=== PATIENT | male | born 1970 | race Hispanic/Latino ===

== ENCOUNTER 2018-06-29 08:09 | Day surgery (SDC) | payer BC ==
[2018-06-29] MEDS ORDERED: Propofol 10 mg/ml Inj (20 ML) ONE (09:00)
[2018-06-29 09:54] VITALS: TEMP 98
[2018-06-29] MEDS ORDERED: Lactated Ringer's 1,000 ML IV SCH (10:00)
[2018-06-29 10:46] VITALS: RESP 16; O2SAT 100
[2018-06-29 11:08] VITALS: BP 96/61; PULSE 55
== END 2018-06-29 11:14 | disposition home or self-care (01) ==
LOC: ENDO 08:09
PROVIDERS: ATTEND Internal Medicine Gastroenterology
DX: K22.10 Ulcer of esophagus without bleeding (principal); R10.13 Epigastric pain; K29.50 Unspecified chronic gastritis without bleeding; K92.1 Melena; K44.9 Diaphragmatic hernia without obstruction or gangrene; K29.80 Duodenitis without bleeding; K31.7 Polyp of stomach and duodenum; K64.8 Other hemorrhoids; Q43.8 Other specified congenital malformations of intestine
CPT/HCPCS: 43239; 45378; 88305; 88342; J2001; J2704; J7030; J7120